=== PATIENT | female | born 1960 | race Caucasian/White ===

== ENCOUNTER 2024-09-23 07:59 | Day surgery (SDC) | payer OTHER ==
[~2024-09-23] VITALS: Ht 157.5 cm; Wt 56.5 kg
[~2024-09-23 07:59] MED LIST: ABILIFY MYCITE2 M2; Balanced Salt Epinephrine Irrigation Solution 500 mL IR SCH; Diazepam 5 MG Tab PO PRN; Diazepam 5 MG Tab PO SCH; LOSARTAN-HCTZ1 EACH; Lidocaine HCl/Pf 1% 5 ML VIAL XX SCH; METO25ER; Moxifloxacin HCL 0.5 MG/0.1 ML 0.4MLSYR RIGHTEYE SCH; Ondansetron 4 MG SoluTab MM PRN; PHENYLEPHRINE\\TROPICAMIDE\\TETRACAINE OPHTHALMIC DILATING SOLN RIGHTEYE PRN; POTA20PAC; Povidone-Iodine 450 DROP/30 ML Solution ONE; Povidone-Iodine 450 DROP/30 ML Solution RIGHTEYE SCH; Tetracaine HCl/Pf 0.5% Opth Soln 4 ml ONE; Triamcinolone Inj Susp 40 MG / ML 1ML Vial INJ SCH; Triamcinolone Inj Susp 40 MG / ML 1ML Vial ONE
[2024-09-23] MEDS ORDERED: Diazepam 10 MG Tab ONE (08:22)
--- NOTE | 2024-09-23 08:38 | NUR ---
09/23/24 0838 Briana Mercer PT REPORTS ANXIETY AT 3/10 PRIOR TO ADMINISTRATION OF VALIUM 10MG PO AT 0836.
[2024-09-23] MEDS ORDERED: HYDROCODONE-AC1 EAC7 PO (08:40)
[2024-09-23] MEDS ORDERED: BUPROPION XL150 M1 PO (08:40)
--- NOTE | 2024-09-23 09:29 | NUR ---
09/23/24 0929 Lyn Mckeon BP-134/83 P-66 SPO2-99% ON 10L BLOW BY O2
[2024-09-23 09:51] VITALS: BP 128/72
--- NOTE | 2024-09-23 10:14 | NUR ---
09/23/24 1014 NOAH KNIGHT PAPER TAPE X 2 GIVEN TO PT PER HER REQUEST
== END 2024-09-23 10:13 | disposition home or self-care (01) ==
LOC: ORSCSDS 07:59
PROVIDERS: Ophthalmology
PROC: 08RJ3JZ Replacement of Right Lens with Synthetic Substitute, Percutaneous Approach (ICD-10-PCS; principal; 2024-09-23 09:30)
DX: H25.813 Combined forms of age-related cataract, bilateral (principal); H52.201 Unspecified astigmatism, right eye; Z87.891 Personal history of nicotine dependence; Z79.899 Other long term (current) drug therapy
CPT/HCPCS: A9270; J3301; V2632

== ENCOUNTER 2024-09-30 08:12 | Day surgery (SDC) | payer OTHER ==
[~2024-09-30] VITALS: Ht 157.5 cm; Wt 55.5 kg
[~2024-09-30 08:12] MED LIST changes: +BUPROPION XL150 M1 PO; -Diazepam 5 MG Tab PO PRN; -Diazepam 5 MG Tab PO SCH; +HYDROCODONE-AC1 EAC7 PO; -Lidocaine HCl/Pf 1% 5 ML VIAL XX SCH; +Moxifloxacin HCL 0.5 MG/0.1 ML 0.4MLSYR LEFTEYE SCH; -Moxifloxacin HCL 0.5 MG/0.1 ML 0.4MLSYR RIGHTEYE SCH; +PHENYLEPHRINE\\TROPICAMIDE\\TETRACAINE OPHTHALMIC DILATING SOLN LEFTEYE PRN; -PHENYLEPHRINE\\TROPICAMIDE\\TETRACAINE OPHTHALMIC DILATING SOLN RIGHTEYE PRN; +Povidone-Iodine 450 DROP/30 ML Solution LEFTEYE SCH; -Povidone-Iodine 450 DROP/30 ML Solution RIGHTEYE SCH
--- NOTE | 2024-09-30 09:48 | NUR ---
09/30/24 0948 Patricia Franklin VITALS AT 0948 BP: 149/82 P: 70 O2: 100% WITH 6 LITERS OF BLOW BY OXYGEN
[2024-09-30 10:13] VITALS: BP 140/84
== END 2024-09-30 10:00 | disposition home or self-care (01) ==
LOC: ORSCSDS 08:12
PROVIDERS: Ophthalmology
PROC: 08RK3JZ Replacement of Left Lens with Synthetic Substitute, Percutaneous Approach (ICD-10-PCS; principal; 2024-09-30 10:00)
DX: H25.812 Combined forms of age-related cataract, left eye (principal); Z96.1 Presence of intraocular lens; H52.202 Unspecified astigmatism, left eye; Z86.0102 Personal history of hyperplastic colon polyps; Z87.891 Personal history of nicotine dependence; Z79.899 Other long term (current) drug therapy
CPT/HCPCS: A9270; J3301; V2632